=== PATIENT | male | born 1985 | race Caucasian/White ===

== ENCOUNTER 2025-05-13 21:37 | Emergency (ER) | payer OTHER ==
[~2025-05-13] VITALS: Ht 177.8 cm; Wt 83.9 kg
[2025-05-13 22:02] VITALS: BP 106/71; O2SAT 98
[2025-05-13] MEDS ORDERED: ORPHENADRINE CITRATE 30 MG/ML AMPUL IM STA (22:34)
[2025-05-14] MEDS ORDERED: NORFLEX100MG PO (02:39)
== END 2025-05-14 02:44 | disposition home or self-care (01) ==
LOC: ER 22:20
DX: M54.9 Dorsalgia, unspecified (principal)